=== PATIENT | male | born 1940 | race Caucasian/White ===

== ENCOUNTER 2018-02-27 20:02 | Emergency (ER) | payer OTHER ==
[~2018-02-27] VITALS: Ht 172.7 cm; Wt 90.0 kg
[2018-02-27 20:28] VITALS: BP 186/86; PULSE 74; RESP 18; TEMP 97.2; O2SAT 98
[2018-02-27 20:59] VITALS: BP 186/85; PULSE 76; RESP 18; TEMP 98.4; O2SAT 98
[2018-02-27] MEDS ORDERED: UMEC1AER INH (21:02)
[2018-02-27] MEDS ORDERED: VENTAER INH (21:02)
[2018-02-27 22:03] LABS: AUTOMATED NEUTROPHIL # 8.4 TH/MM3 (1.8-7.7); BASOPHIL % 0.4 % (0.0-2.0); EOSINOPHIL # 0.2 TH/MM3 (0-0.4); EOSINOPHIL % 1.7 % (0.0-4.0); HEMATOCRIT 38.8 % (39.0-51.0); HEMOGLOBIN 13.1 GM/DL (13.0-17.0); LYMPH % 9.3 % (9.0-44.0); LYMPHOCYTE # 0.9 TH/MM3 (1.0-4.8); MEAN CORPUSCULAR HGB CONC 33.7 % (32.0-36.0); MEAN PLATELET VOLUME 7.8 FL (7.0-11.0); MONO % 6.1 % (0.0-8.0); MONOCYTE # 0.6 TH/MM3 (0-0.9); NEUT % 82.5 % (16.0-70.0); PLATELET COUNT 175 TH/MM3 (150-450); RED BLOOD COUNT 4.36 MIL/MM3 (4.50-5.90); RED CELL DISTRIBUTION WIDTH 13.9 % (11.6-17.2); WHITE BLOOD COUNT 10.2 TH/MM3 (4.0-11.0)
[2018-02-27 22:04] LABS: ALBUMIN 4.4 GM/DL (3.4-5.0); AST (GOT) 25 U/L (15-37); BICARBONATE 24.5 MEQ/L (21.0-32.0); BLOOD UREA NITROGEN 31 MG/DL (7-18); CALCIUM 9.5 MG/DL (8.5-10.1); CHLORIDE 107 MEQ/L (98-107); CREATININE 1.32 MG/DL (0.60-1.30); GLOMERULAR FILTRATION RATE 53 ML/MIN (>89); GLUCOSE,RANDOM 82 MG/DL (74-106); SODIUM (NA) 144 MEQ/L (136-145)
[2018-02-27 22:05] LABS: ALT (GPT) 22 U/L (12-78)
--- NOTE | 2018-02-27 22:08 | PD ---
HPI Chief Complaint: Psychiatric Symptoms Time Seen by Provider: 21:43 Travel History International Travel<30 days: No Contact w/Intl Traveler<30days: No Traveled to known affect area: No History of Present Illness HPI 77-year-old male with PMH of COPD, HTN, bipolar presents to the ED under Roth act after making suicidal statements to his son during an argument. Patient acknowledges that he said ", blow my brains out." He does have a shotgun and a pistol at home. He states that he is not suicidal but made these statements in anger. He endorses multiple aches and pains but has no real somatic complaints. He is unsure what medications he takes. He denies alcohol use, illicit drug use or cigarette smoking. PFSH Past Medical History Arthritis: No Asthma: Yes Autoimmune Disease: No Blood Disorders: No Anxiety: No Depression: No Heart Rhythm Problems: No Cancer: No High Cholesterol: No Chest Pain: No Congestive Heart Failure: No COPD: Yes Cerebrovascular Accident: No Diabetes: No GERD: No Glaucoma: No Headaches: No Hepatitis: No Hiatal Hernia: No Hypertension: Yes Kidney Stones: No Myocardial Infarction: No Renal Failure: No Seizures: No Sickle Cell Disease: No Sleep Apnea: No Thyroid Disease: No Ulcer: No Past Surgical History Abdominal Surgery: Yes (appendectomy) AICD: No Pacemaker: No Social History Alcohol Use: No Tobacco Use: Yes (one pack a day) Substance Use: No Allergies-Medications (Allergen,Severity, Reaction): Coded Allergies: carbamazepine (Unverified Allergy, Severe, 02/27/18) doxycycline (Unverified Allergy, Severe, SWELLING, SOB, BLINDNESS, 02/27/18 ) minocycline (Unverified Allergy, Severe, SWELLING, SOB, BLINDNESS, 02/27/18 ) tigecycline (Unverified Allergy, Severe, SWELLING, SOB, BLINDNESS, 02/27/18 ) Reported Meds & Prescriptions Reported Meds & Active Scripts Active Reported Hydrocodone-Acetaminophen 5-325 mg Tab 1 Tab PO TID PRN Ondansetron Odt 4 Mg Tab 4 Mg SL Q6HR PRN Sertraline (Sertraline HCl) 100 Mg Tab 100 Mg PO DAILY Lorazepam 1 Mg Tab 1 Mg PO BID PRN Omeprazole 20 Mg Tab 20 Mg PO BID Benazepril (Benazepril HCl) 40 Mg Tab 40 Mg PO DAILY Ranitidine (Ranitidine HCl) 150 Mg Tab 150 Mg PO BID Lovastatin 20 Mg Tab 20 Mg PO HS Naprosyn (Naproxen) 500 Mg Tab 500 Mg PO BID Ventolin Hfa 18 GM Inh (Albuterol Sulfate) 90 Mcg/Act Aer 2 Puff INH Q4-6H PRN Anoro Ellipta Inh (Umeclidinium/Vilanterol) 62.5-25 Mcg/Act Aero 1 Puff INH DAILY Review of Systems Except as stated in HPI: all other systems reviewed are Neg Physical Exam Narrative GENERAL: Well-nourished, well-developed obese white male no acute distress. PSYCH: Calm, cooperative, sad affect. SKIN: Focused skin assessment warm/dry. HEAD: Normocephalic. EYES: No scleral icterus. No injection or drainage. NECK: Supple, trachea midline. No JVD or lymphadenopathy. CARDIOVASCULAR: Regular rate and rhythm without murmurs, gallops, or rubs. RESPIRATORY: Breath sounds equal bilaterally. No accessory muscle use. GASTROINTESTINAL: Abdomen soft, non-tender, nondistended. MUSCULOSKELETAL: No cyanosis, or edema. BACK: Nontender without obvious deformity. No CVA tenderness. Data Data Last Documented VS Vital Signs Date Time Temp Pulse Resp B/P (MAP) Pulse Ox O2 Delivery O2 Flow Rate FiO2 02/27/18 20:59 98.4 76 18 186/85 (118) 98 Room Air Orders Orders Psych Screen (02/27/18 21:16) Complete Blood Count With Diff (02/27/18 21:25) Comprehensive Metabolic Panel (02/27/18 21:25) Thyroid Stimulating Hormone (02/27/18 21:25) Psych Screen (02/27/18 21:25) Drug Screen, Random Urine (02/27/18 21:25) Alcohol (Ethanol) (02/27/18 21:25) Salicylates (Aspirin) (02/27/18 21:25) Tylenol (Acetaminophen) (02/27/18 21:25) Labs Laboratory Tests Test 02/27/18 20:40 02/27/18 21:00 White Blood Count 10.2 TH/MM3 Red Blood Count 4.36 MIL/MM3 Hemoglobin 13.1 GM/DL Hematocrit 38.8 % Mean Corpuscular Volume 89.0 FL Mean Corpuscular Hemoglobin 30.0 PG Mean Corpuscular Hemoglobin Concent 33.7 % Red Cell Distribution Width 13.9 % Platelet Count 175 TH/MM3 Mean Platelet Volume 7.8 FL Neutrophils (%) (Auto) 82.5 % Lymphocytes (%) (Auto) 9.3 % Monocytes (%) (Auto) 6.1 % Eosinophils (%) (Auto) 1.7 % Basophils (%) (Auto) 0.4 % Neutrophils # (Auto) 8.4 TH/MM3 Lymphocytes # (Auto) 0.9 TH/MM3 Monocytes # (Auto) 0.6 TH/MM3 Eosinophils # (Auto) 0.2 TH/MM3 Basophils # (Auto) 0.0 TH/MM3 CBC Comment DIFF FINAL Differential Comment Blood Urea Nitrogen 31 MG/DL Creatinine 1.32 MG/DL Random Glucose 82 MG/DL Total Protein 7.3 GM/DL Albumin 4.4 GM/DL Calcium Level 9.5 MG/DL Alkaline Phosphatase 76 U/L Aspartate Amino Transf (AST/SGOT) 25 U/L Alanine Aminotransferase (ALT/SGPT) 22 U/L Total Bilirubin 0.7 MG/DL Sodium Level 144 MEQ/L Potassium Level 4.0 MEQ/L Chloride Level 107 MEQ/L Carbon Dioxide Level 24.5 MEQ/L Anion Gap 13 MEQ/L Estimat Glomerular Filtration Rate 53 ML/MIN Thyroid Stimulating Hormone 3rd Gen 1.140 uIU/ML Salicylates Level LESS THAN 1.7 MG/DL Acetaminophen Level LESS THAN 2.0 MCG/ML Ethyl Alcohol Level LESS THAN 3 MG/DL Urine Opiates Screen POS Urine Barbiturates Screen NEG Urine Amphetamines Screen NEG Urine Benzodiazepines Screen POS Urine Cocaine Screen NEG Urine Cannabinoids Screen POS [facility] Medical Decision Making Medical Screen Exam Complete: Yes Emergency Medical Condition: Yes Differential Diagnosis Adjustment disorder versus anxiety versus bipolar versus depression versus dementia versus electrolyte disorder versus malingering versus mood disorder versus ODD versus psychosis versus PTSD versus schizophrenia versus schizoaffective disorder versus substance-induced mood disorder versus other Narrative Course 77-year-old male with PMH of COPD, HTN, bipolar presents to the ED under Roth act after making suicidal statements to his son during an argument. Patient acknowledges that he said ", blow my brains out." He does have a shotgun and a pistol at home. He states that he is not suicidal but made these statements in anger. He endorses multiple aches and pains but has no real somatic complaints. He is unsure what medications he takes. He denies alcohol use, illicit drug use or cigarette smoking. Vitals reviewed. Physical exam is unremarkable. Patient was administered his evening medications by mouth. No concerning abnormalities of CBC, CMP, TSH. EtOH less than 3. Tox screen positive for opiates, benzos, cannabinoids. Patient is medically cleared for psychiatric evaluation. Shelly Leal Feb 27, 2018 22:08
[2018-02-27 22:15] LABS: ALKALINE PHOSPHATASE 76 U/L (45-117); TOTAL BILIRUBIN ADULT 0.7 MG/DL (0.2-1.0); TOTAL PROTEIN 7.3 GM/DL (6.4-8.2)
[2018-02-27 22:27] LABS: ACETAMINOPHEN LESS THAN 2.0 MCG/ML (10.0-30.0)
[2018-02-27] MEDS ORDERED: ONDA4TAB7 SL (22:28)
[2018-02-27] MEDS ORDERED: LORA1TAB12 PO (22:28)
[2018-02-27] MEDS ORDERED: LOVA20TA PO (22:28)
[2018-02-27] MEDS ORDERED: SERT-129 PO (22:28)
[2018-02-27] MEDS ORDERED: OMEP20TA93 PO (22:28)
[2018-02-27] MEDS ORDERED: HYDR-3516 PO (22:28)
[2018-02-27] MEDS ORDERED: BENA40TA PO (22:28)
[2018-02-27] MEDS ORDERED: RANI150T PO (22:28)
[2018-02-27] MEDS ORDERED: NAPR500 PO (22:28)
[2018-02-27] MEDS ORDERED: NAPROXEN 500 MG TAB PO ONE (22:45)
[2018-02-27] MEDS ORDERED: RANITIDINE HCL SYRUP 150 MG/10 ML UDC PO ONE (22:45)
[2018-02-27] MEDS ORDERED: ACETAMINOPHEN/HYDROcodone 325 MG/5 MG TAB PO ONE (22:45)
[2018-02-28 02:30] VITALS: BP 136/66; PULSE 65; RESP 18; TEMP 98.2; O2SAT 95
[2018-02-28 06:45] VITALS: BP 134/64; PULSE 60; RESP 18; TEMP 98.2; O2SAT 99
--- NOTE | 2018-02-28 08:19 | PD ---
Physical Exam Date Seen by Provider: Feb 28, 2018 Time Seen by Provider: 08:17 Narrative 77-year-old male previously Roth acted with reports of suicidal ideation, was medically cleared for psychiatric evaluation. Patient has been seen and evaluated by Dr. Vila, the psychiatrist who feels he is psychiatrically stable for discharge at this time. It is reported that all guns been removed from the home. Psychiatric follow-up will be based on Dr. Vila's note. Patient remains medically stable for discharge at this time. Data Data Last Documented VS Vital Signs Date Time Temp Pulse Resp B/P (MAP) Pulse Ox O2 Delivery O2 Flow Rate FiO2 02/28/18 06:45 98.2 60 18 134/64 (87) 99 Room Air Orders Orders Psych Screen (02/27/18 21:16) Complete Blood Count With Diff (02/27/18 21:25) Comprehensive Metabolic Panel (02/27/18 21:25) Thyroid Stimulating Hormone (02/27/18 21:25) Psych Screen (02/27/18 21:25) Drug Screen, Random Urine (02/27/18 21:25) Alcohol (Ethanol) (02/27/18 21:25) Salicylates (Aspirin) (02/27/18 21:25) Tylenol (Acetaminophen) (02/27/18 21:25) Naproxen (Naprosyn) (02/27/18 22:45) Acetamin-Hydrocod 325-5 Mg ([place] 5-325 (02/27/18 22:45) Ranitidine Liq (Zantac Liq) (02/27/18 22:45) Diet Heart Healthy (02/28/18 Breakfast) Labs Laboratory Tests Test 02/27/18 20:40 02/27/18 21:00 White Blood Count 10.2 TH/MM3 Red Blood Count 4.36 MIL/MM3 Hemoglobin 13.1 GM/DL Hematocrit 38.8 % Mean Corpuscular Volume 89.0 FL Mean Corpuscular Hemoglobin 30.0 PG Mean Corpuscular Hemoglobin Concent 33.7 % Red Cell Distribution Width 13.9 % Platelet Count 175 TH/MM3 Mean Platelet Volume 7.8 FL Neutrophils (%) (Auto) 82.5 % Lymphocytes (%) (Auto) 9.3 % Monocytes (%) (Auto) 6.1 % Eosinophils (%) (Auto) 1.7 % Basophils (%) (Auto) 0.4 % Neutrophils # (Auto) 8.4 TH/MM3 Lymphocytes # (Auto) 0.9 TH/MM3 Monocytes # (Auto) 0.6 TH/MM3 Eosinophils # (Auto) 0.2 TH/MM3 Basophils # (Auto) 0.0 TH/MM3 CBC Comment DIFF FINAL Differential Comment Blood Urea Nitrogen 31 MG/DL Creatinine 1.32 MG/DL Random Glucose 82 MG/DL Total Protein 7.3 GM/DL Albumin 4.4 GM/DL Calcium Level 9.5 MG/DL Alkaline Phosphatase 76 U/L Aspartate Amino Transf (AST/SGOT) 25 U/L Alanine Aminotransferase (ALT/SGPT) 22 U/L Total Bilirubin 0.7 MG/DL Sodium Level 144 MEQ/L Potassium Level 4.0 MEQ/L Chloride Level 107 MEQ/L Carbon Dioxide Level 24.5 MEQ/L Anion Gap 13 MEQ/L Estimat Glomerular Filtration Rate 53 ML/MIN Thyroid Stimulating Hormone 3rd Gen 1.140 uIU/ML Salicylates Level LESS THAN 1.7 MG/DL Acetaminophen Level LESS THAN 2.0 MCG/ML Ethyl Alcohol Level LESS THAN 3 MG/DL Urine Opiates Screen POS Urine Barbiturates Screen NEG Urine Amphetamines Screen NEG Urine Benzodiazepines Screen POS Urine Cocaine Screen NEG Urine Cannabinoids Screen POS MDM Medical Record Reviewed: Yes Supervised Visit with MALISSA: Yes Narrative Course 77-year-old male previously Roth acted with reports of suicidal ideation, was medically cleared for psychiatric evaluation. Patient has been seen and evaluated by Dr. Vila, the psychiatrist who feels he is psychiatrically stable for discharge at this time. It is reported that all guns been removed from the home. Psychiatric follow-up will be based on Dr. Vila's note. Patient remains medically stable for discharge at this time. Patient Instructions: General Instructions Disposition: DISCHARGE HOME Condition: Stable Dejuan Boss Feb 28, 2018 08:19
--- NOTE | 2018-02-28 10:10 | PD.PSY.CON ---
Provisional Diagnosis Admission Date State [address] I. Adjustment disorder with depressed mood, major depressive disorder on remission , anxiety [address]. [address]erred [address] III. COPD, hypertension, arthritis, low back pain History of Present Illness Service Psychiatry Consult Requested By ER Reason for Consult Suicidal ideation Primary Care Physician Kareem Carver MD HPI The patient was seen this morning 6:45 AM The patient is a 77-year-old man, domiciled in [place] with his and son, retired, supported by Social Security, he has psychiatric history of depression, 1 previous psychiatric admission, no previous suicide attempts, he is on Zoloft 100 mg, Ativan 1 mg twice daily, medical history of COPD, HTN, who presents to the ED under Roth act after making suicidal statements to his son during an argument. Patient acknowledges that he said ", blow my brains out." He does have a shotgun and a pistol at home. He states that he is not suicidal but made these statements in anger. He endorses multiple aches and pains but has no real somatic complaints. On the psychiatric evaluation patient is mostly focused in pain through his body. The patient clarifies that he is not suicidal and he was just upset with his son. Patient clarifies also that he has 2 legal guns at home. He says that he had never used his guardians against anybody and not definitely on himself. Patient reports that he was just upset because his son was leaving his house after an argument. At this moment the patient denies depression, denies hopelessness, denies helplessness, he is future oriented, and endorses multiple protective factors such as the level his family, and spirituality. The patient denies suicidal and homicidal ideation, he denies visual and auditory hallucinations. We got collateral information from his , her name is Myriam Contreras, , she confirms that the patient was just upset yesterday. She describes the patient is a good father family, good , very responsible. He could be impulsive when he is upset, but "he will never hurt himself or anyone". She reports that his legal gone have been removed by her and her son and are in a safe place at this moment. She feels safe with discharging the patient and called him personally to picking him up. Review of Systems Constitutional: DENIES: Diaphoretic episodes, Fatigue, Fever, Weight gain, Weight loss, Chills, Dizziness, Change in appetite, Night Sweats Endocrine: DENIES: Heat/cold intolerance, Polydipsia, Polyuria, Polyphagia Eyes: DENIES: Blurred vision, Diplopia, Eye inflammation, Eye pain, Vision loss , Photosensitivity, Double Vision Ears, nose, mouth, throat: DENIES: Tinnitus, Hearing loss, Vertigo, Nasal discharge, Oral lesions, Throat pain, Hoarseness, Ear Pain, Running Nose, Epistaxis, Sinus Pain, Toothache, Odynophagia Respiratory: DENIES: Apneas, Cough, Snoring, Wheezing, Hemoptysis, Sputum production, Shortness of breath Cardiovascular: DENIES: Chest pain, Palpitations, Syncope, Dyspnea on Exertion , PND, Lower Extremity Edema, Orthopnea, Claudication Gastrointestinal: DENIES: Abdominal pain, Black stools, Bloody stools, Constipation, Diarrhea, Nausea, Vomiting, Difficulty Swallowing, Anorexia Genitourinary: DENIES: Sexual dysfunction, Urinary frequency, Urinary incontinence, Urgency, Hematuria, Dysuria, Nocturia, Penile Discharge, Testicular Pain, Testicular Swelling Musculoskeletal: DENIES: Joint pain, Muscle aches, Stiffness, Joint Swelling, Back pain, Neck pain Integumentary: DENIES: Abnormal pigmentation, Nail changes, Pruritus, Rash Hematologic/lymphatic: DENIES: Bruising, Lymphadenopathy Immunologic/allergic: DENIES: Eczema, Urticaria Neurologic: DENIES: Abnormal gait, Headache, Localized weakness, Paresthesias, Seizures, Speech Problems, Tremor, Poor Balance Psychiatric: DENIES: Anxiety, Confusion, Mood changes, Depression, Hallucinations, Agitation, Suicidal Ideation, Homicidal Ideation, Delusions Past Family Social History Coded Allergies: carbamazepine (Unverified Allergy, Severe, 02/27/18) doxycycline (Unverified Allergy, Severe, SWELLING, SOB, BLINDNESS, 02/27/18 ) minocycline (Unverified Allergy, Severe, SWELLING, SOB, BLINDNESS, 02/27/18 ) tigecycline (Unverified Allergy, Severe, SWELLING, SOB, BLINDNESS, 02/27/18 ) Reported Medications Hydrocodone-Acetaminophen (Hydrocodone-Acetaminophen) 5-325 mg Tab, 1 TAB PO TID Y for PAIN, TAB 0 Refills 02/27/18 Ondansetron Odt (Ondansetron Odt) 4 Mg Tab, 4 MG SL Q6HR Y for Nausea/Vomiting, TAB 0 Refills 02/27/18 Sertraline (Sertraline) 100 Mg Tab, 100 MG PO DAILY, #30 TAB 0 Refills 02/27/18 Lorazepam (Lorazepam) 1 Mg Tab, 1 MG PO BID Y for ANXIETY, TAB 0 Refills 02/27/18 Omeprazole (Omeprazole) 20 Mg Tab, 20 MG PO BID, #30 TAB 0 Refills 02/27/18 Benazepril (Benazepril) 40 Mg Tab, 40 MG PO DAILY for Blood Pressure Management , #30 TAB 0 Refills 02/27/18 Ranitidine (Ranitidine) 150 Mg Tab, 150 MG PO BID for Heartburn Management, #60 TAB 0 Refills 02/27/18 Lovastatin (Lovastatin) 20 Mg Tab, 20 MG PO HS for Cholesterol Management, #30 TAB 0 Refills 02/27/18 Naproxen (Naprosyn) 500 Mg Tab, 500 MG PO BID, #60 TAB 0 Refills 02/27/18 Albuterol 18 GM Inh (Ventolin Hfa 18 GM Inh) 90 Mcg/Act Aer, 2 PUFF INH Q4-6H Y for SHORTNESS OF BREATH, #1 INHALER 0 Refills 02/27/18 Umeclidinium-Vilanterol Inh (Anoro Ellipta Inh) 62.5-25 Mcg/Act Aero, 1 PUFF INH DAILY for COPD, #1 INHALER 0 Refills 02/27/18 Family Psych History No family psychiatric history Social History Patient was born and raised in [place], he losing holy heel with his , he is retired, supported by Social Security, his highest level of education is high Patient's Strengths (min. 2) Family support Physical Exam Vital Signs Vital Signs Date Time Temp Pulse Resp B/P (MAP) Pulse Ox O2 Delivery O2 Flow Rate FiO2 02/28/18 08:29 02/28/18 06:45 98.2 60 18 99 Room Air Lab Results Test 02/27/18 20:40 02/27/18 21:00 White Blood Count 10.2 TH/MM3 Red Blood Count 4.36 MIL/MM3 Hemoglobin 13.1 GM/DL Hematocrit 38.8 % Mean Corpuscular Volume 89.0 FL Mean Corpuscular Hemoglobin 30.0 PG Mean Corpuscular Hemoglobin Concent 33.7 % Red Cell Distribution Width 13.9 % Platelet Count 175 TH/MM3 Mean Platelet Volume 7.8 FL Neutrophils (%) (Auto) 82.5 % Lymphocytes (%) (Auto) 9.3 % Monocytes (%) (Auto) 6.1 % Eosinophils (%) (Auto) 1.7 % Basophils (%) (Auto) 0.4 % Neutrophils # (Auto) 8.4 TH/MM3 Lymphocytes # (Auto) 0.9 TH/MM3 Monocytes # (Auto) 0.6 TH/MM3 Eosinophils # (Auto) 0.2 TH/MM3 Basophils # (Auto) 0.0 TH/MM3 CBC Comment DIFF FINAL Differential Comment Blood Urea Nitrogen 31 MG/DL Creatinine 1.32 MG/DL Random Glucose 82 MG/DL Total Protein 7.3 GM/DL Albumin 4.4 GM/DL Calcium Level 9.5 MG/DL Alkaline Phosphatase 76 U/L Aspartate Amino Transf (AST/SGOT) 25 U/L Alanine Aminotransferase (ALT/SGPT) 22 U/L Total Bilirubin 0.7 MG/DL Sodium Level 144 MEQ/L Potassium Level 4.0 MEQ/L Chloride Level 107 MEQ/L Carbon Dioxide Level 24.5 MEQ/L Anion Gap 13 MEQ/L Estimat Glomerular Filtration Rate 53 ML/MIN Thyroid Stimulating Hormone 3rd Gen 1.140 uIU/ML Salicylates Level LESS THAN 1.7 MG/DL Acetaminophen Level LESS THAN 2.0 MCG/ML Ethyl Alcohol Level LESS THAN 3 MG/DL Urine Opiates Screen POS Urine Barbiturates Screen NEG Urine Amphetamines Screen NEG Urine Benzodiazepines Screen POS Urine Cocaine Screen NEG Urine Cannabinoids Screen POS Mental Status Examination Appearance: Appropriate Consciousness: Alert Orientation: x4 Motor Activity: Normal gait Speech: Unremarkable Language: Adequate Fund of Knowledge: Adequate Attention and Concentration: Adequate Memory: Unremarkable Mood: Appropriate Affect: Appropriate Thought Process & Associations: Intact Thought Content: Appropriate Hallucination Type: None Delusion Type: None Suicidal Ideation: No Suicidal Plan: No Suicidal Intention: No Homicidal Ideation: No Homicidal Plan: No Homicidal Intention: No Insight: Adequate Judgment: Adequate Assessment & Plan Problem List: (1) Adjustment disorder with depressed mood ICD Codes: F43.21 - Adjustment disorder with depressed mood Assessment & Plan: On psychiatric evaluation today the patient is calm, cooperative, logical coherent and relevant. The patient is fully oriented 3. He denies symptomatology of depression, denies hopelessness, helplessness, worthlessness, denies anxiety, mehrdad and psychosis. The patient denies suicidal enemas ideation, he denies visual and auditory hallucinations. The patient has history of depression, he is on Zoloft 100 mg daily, Ativan 1 mg twice daily for anxiety. Apparently his recent suicidal statement at home was in the context of anger after an argument with his son. Patient is now at baseline. was used as collateral information and informed that the patient is a baseline and he is safe to be discharged. Guns have been removed by family. He does not meet criteria for involuntary psychiatric admission. Patient will be discharged with his . Assessment & Plan Estimated LOS: days Bartolo Patterson MD Feb 28, 2018 10:10
== END 2018-02-28 08:29 | disposition home or self-care (01) ==
LOC: NEPJ 20:02
DX: F43.21 Adjustment disorder with depressed mood (principal); I10 Essential (primary) hypertension; J44.9 Chronic obstructive pulmonary disease, unspecified; F17.200 Nicotine dependence, unspecified, uncomplicated; Z79.899 Other long term (current) drug therapy
CPT/HCPCS: 80053; 80307; 84443; 85025; 99283